=== PATIENT | female | born 2000 | race Caucasian/White ===

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

== ENCOUNTER 2021-02-15 18:50 | Emergency (ER) | payer OTHER ==
[2021-02-15 19:59] VITALS: BP 110/58; PULSE 63; RESP 18; TEMP 97.9
[2021-02-15 20:15] LABS: Appearance,Urine Clear (Clear); Bilirubin,Urine Negative (Negative); Blood,Urine Negative (Negative); Color,Urine Colorless; Glucose,Urine (UA) Negative (Negative); Ketones,Urine Negative (Negative); Leukocyte Esterase,Urine Negative (Negative); Nitrite,Urine Negative (Negative); Protein,Urine Negative (Negative); Specific Gravity,Urine 1.002 (1.001-1.035); Urobilinogen,Urine <2.0 mg/dL (<2.0)
== END 2021-02-15 19:55 | disposition left against medical advice (07) ==
LOC: EC 18:50
DX: Z53.21 Procedure and treatment not carried out due to patient leaving prior to being seen by health care provider (principal)
CPT/HCPCS: 81003; 99499

== ENCOUNTER 2021-08-29 14:21 | Emergency (ER) | payer OTHER ==
[2021-08-29 14:33] VITALS: BP 115/65; PULSE 96; TEMP 98
[2021-08-29] MEDS ORDERED: IBUPROFEN 600 MG TAB PO STA (15:23)
[2021-08-29] MEDS ORDERED: SODIUM CHLORIDE 0.9% 500 ML 500 ML IV STA (15:23)
--- NOTE | 2021-08-29 16:11 | ED ---
URI HPI - General Chief Complaint: Upper Respiratory Infection Stated Complaint: cough Time Seen by Provider: 08/29/21 15:13 Source: patient Mode of arrival: ambulatory Limitations: no limitations - History of Present Illness Initial Comments: She is a 21-year-old female presenting with chief complaint of cough. Cough has been present for about 3 days, it has been nonproductive until early this morning when the patient noticed blood-tinged sputum. Patient is complaining of diffuse chest pain that is not changed by position, exertion, or palpation. She states it is present at baseline and worse with coughing or deep breaths. Patient has been taking guaifenesin and breathing treatments at home. She admits to congestion, sore throat, sinus pressure. She denies abdominal pain, fever, chills, ear pain, diarrhea, constipation, nausea, vomiting, hematochezia, rash, palpitations. - Related Data Previous Rx's Medication Instructions Recorded Benzonatate [Tessalon Perles] 100 mg PO TID PRN #20 capsule 08/29/21 methylPREDNISolone [Medrol Dose 4 mg PO DIRECTED #1 packet 08/29/21 Pack] Allergies Allergy/AdvReac Type Severity Reaction Status Date / Time fluconazole [From Diflucan] Allergy Severe Rash/Hives Verified 08/29/21 16:15 nystatin Allergy Severe Rash/Hives Verified 08/29/21 16:15 sulfamethoxazole Allergy Unknown Family Verified 08/29/21 16:15 [From Bactrim] History trimethoprim [From Bactrim] Allergy Family Verified 08/29/21 16:15 History Review of Systems ROS Statement: Those systems with pertinent positive or pertinent negative responses have been documented in the HPI. ROS Other: All systems not noted in ROS Statement are negative. Past Medical History Additional Past Medical History / Comment(s): Tidwell Parkinson White syndrome, heart murmur, had an ablasion and heart cath at age 11 or 12 yrs. Bicuspid aortic valve leak. Dr Moe at [facility] cardiology. Tourettes syndrome Neurology at the [facility]., wisdom teeth removed History of Any Multi-Drug Resistant Organisms: None Reported Past Surgical History: Adenoidectomy, Cardiac Ablation, Heart Catheterization, Tonsillectomy Additional Past Surgical History / Comment(s): wpw, ganglion cyst wrist removed Past Anesthesia/Blood Transfusion Reactions: No Reported Reaction Past Psychological History: No Psychological Hx Reported Smoking Status: Vaper Past Alcohol Use History: None Reported Past Drug Use History: None Reported - Past Family History Mother Family Medical History: No Reported History Father History Unknown: Yes Half Sister Jolynn Additional Family Medical History / Comment(s): unknown heart problem Ale half sister Family Medical History: No Reported History General Exam Limitations: no limitations General appearance: alert, in no apparent distress Head exam: Present: atraumatic, normocephalic, normal inspection Eye exam: Present: normal appearance, PERRL, EOMI. Absent: scleral icterus, conjunctival injection, periorbital swelling ENT exam: Present: normal exam, mucous membranes moist, TM's normal bilaterally Neck exam: Present: normal inspection Respiratory exam: Present: normal lung sounds bilaterally. Absent: respiratory distress, wheezes, rales, rhonchi, stridor Cardiovascular Exam: Present: regular rate, normal rhythm, normal heart sounds. Absent: systolic murmur, diastolic murmur, rubs, gallop, clicks Neurological exam: Present: alert, oriented X3, CN II-XII intact Psychiatric exam: Present: normal affect, normal mood Skin exam: Present: warm, dry, intact, normal color. Absent: rash Course Vital Signs 08/29/21 08/29/21 14:32 17:36 Temperature 98 F Pulse Rate 96 Respiratory 16 18 Rate Blood Pressure 115/65 O2 Sat by Pulse 97 Oximetry Medical Decision Making - Medical Decision Making Patient is a 21-year-old female presenting with chief complaint of cough. Cough has been present for 3 days. Today she began seeing blood-tinged sputum which prompted her to present to the ER. He has been taking guaifenesin and albuterol breathing treatments. He is also complaining of chest pain that is worse with deep breaths and coughing. On exam lungs are clear to auscultation, HEENT exam is WNL. He should tested negative for Covid, RSV, influenza. Chest x-ray was unremarkable. Lab work is unremarkable. D-dimer is not elevated. EKG is WNL. prescribed patient Tessalon Perles 100 mg up to 3 times a day as needed for c oughing and Medrol Dosepak take as directed. Continue taking guaifenesin and albuterol breathing treatments as needed. He take Motrin and Tylenol as needed for pain control. Provided patient with work note, may return to work on 08/31/21. Gave patient strict return parameters. Follow up with PCP in one to 2 days. Report back to ER with any worsening symptoms or new onset alarming symptoms. Answered all questions. Patient conveyed verbal understanding and agreed to the plan. My attending was Dr. Peterson. - Lab Data Result diagrams: 08/29/21 16:27 08/29/21 16:27 Lab Results 08/29/21 08/29/21 08/29/21 Range/Units 16:12 16:27 16:27 WBC 10.9 (4.0-11.0) k/uL RBC 4.44 (3.80-5.40) m/uL Hgb 13.4 (11.4-16.0) gm/dL Hct 39.5 (34.0-46.0) % MCV 89.0 (80.0-100.0) fL MCH 30.1 (25.0-35.0) pg MCHC 33.8 (31.0-37.0) g/dL RDW 12.9 (11.5-15.5) % Plt Count 224 (150-450) k/uL MPV 7.6 Neutrophils % 76 % Lymphocytes % 16 % Monocytes % 5 % Eosinophils % 1 % Basophils % 0 % Neutrophils # 8.3 H (1.3-7.7) k/uL Lymphocytes # 1.7 (1.0-4.8) k/uL Monocytes # 0.5 (0-1.0) k/uL Eosinophils # 0.1 (0-0.7) k/uL Basophils # 0.0 (0-0.2) k/uL D-Dimer <0.17 (<0.60) mg/L FEU Sodium (137-145) mmol/L Potassium (3.5-5.1) mmol/L Chloride (98-107) mmol/L Carbon Dioxide (22-30) mmol/L Anion Gap mmol/L BUN (7-17) mg/dL Creatinine (0.52-1.04) mg/dL Est GFR (CKD-EPI)AfAm (>60 ml/min/1.73 sqM) Est GFR (CKD-EPI)NonAf (>60 ml/min/1.73 sqM) Glucose (74-99) mg/dL Calcium (8.4-10.2) mg/dL Influenza Type A (PCR) Not Detected (Not Detectd) Influenza Type B (PCR) Not Detected (Not Detectd) RSV (PCR) Not Detected (Not Detectd) SARS-CoV-2 (PCR) Not Detected (Not Detectd) 08/29/21 Range/Units 16:27 WBC (4.0-11.0) k/uL RBC (3.80-5.40) m/uL Hgb (11.4-16.0) gm/dL Hct (34.0-46.0) % MCV (80.0-100.0) fL MCH (25.0-35.0) pg MCHC (31.0-37.0) g/dL RDW (11.5-15.5) % Plt Count (150-450) k/uL MPV Neutrophils % % Lymphocytes % % Monocytes % % Eosinophils % % Basophils % % Neutrophils # (1.3-7.7) k/uL Lymphocytes # (1.0-4.8) k/uL Monocytes # (0-1.0) k/uL Eosinophils # (0-0.7) k/uL Basophils # (0-0.2) k/uL D-Dimer (<0.60) mg/L FEU Sodium 139 (137-145) mmol/L Potassium 3.6 (3.5-5.1) mmol/L Chloride 107 (98-107) mmol/L Carbon Dioxide 21 L (22-30) mmol/L Anion Gap 11 mmol/L BUN 9 (7-17) mg/dL Creatinine 0.68 (0.52-1.04) mg/dL Est GFR (CKD-EPI)AfAm >90 (>60 ml/min/1.73 sqM) Est GFR (CKD-EPI)NonAf >90 (>60 ml/min/1.73 sqM) Glucose 89 (74-99) mg/dL Calcium 9.0 (8.4-10.2) mg/dL Influenza Type A (PCR) (Not Detectd) Influenza Type B (PCR) (Not Detectd) RSV (PCR) (Not Detectd) SARS-CoV-2 (PCR) (Not Detectd) When compared to previous EKG there are: no significant change Interpretation: no acute changes, normal EKG - Radiology Data Radiology results: report reviewed Interpreted by me: Chest x-ray: No acute process Disposition Clinical Impression: Acute upper respiratory infection Disposition: HOME SELF-CARE Condition: Good Instructions (If sedation given, give patient instructions): Upper Respiratory Infection (ED) Additional Instructions: Take medication as prescribed. May take Motrin and Tylenol as needed for pain control. Follow up with PCP in one to 2 days. Report back to ER if experiencing any worsening symptoms or new onset alarming symptoms, including but not limited to chest pain, shortness of breath, fever, chills, coughing up blood or foul smelling sputum. Prescriptions: methylPREDNISolone [Medrol Dose Pack] 4 mg PO DIRECTED #1 packet Benzonatate [Tessalon Perles] 100 mg PO TID PRN #20 capsule PRN Reason: Cough Is patient prescribed a controlled substance at d/c from ED?: No Referrals: None,Stated [Primary Care Provider] - 1-2 days Time of Disposition: 17:44
--- NOTE | 2021-08-29 16:30 | XR ---
EXAMINATION TYPE: XR chest 2V DATE OF EXAM: 08/29/2021 COMPARISON: Chest x-ray August 26, 2016 HISTORY: Chest pain and cough. TECHNIQUE: Frontal and lateral views of the chest are obtained. FINDINGS: There is no focal air space opacity, pleural effusion, or pneumothorax seen. The cardiac silhouette size is within normal limits. The osseous structures are intact. Overlying metallic nipp le ornaments are incidentally noted. IMPRESSION: No acute process.
[2021-08-29 16:43] LABS: Basophils % (A) 0 %; Eosinophils # (A) 0.1 k/uL (0-0.7); Eosinophils % (A) 1 %; HCT 39.5 % (34.0-46.0); HGB 13.4 gm/dL (11.4-16.0); Lymphocytes # (A) 1.7 k/uL (1.0-4.8); Lymphocytes % (A) 16 %; MCH 30.1 pg (25.0-35.0); MCHC 33.8 g/dL (31.0-37.0); Mean Platelet Volume 7.6; Monocytes # (A) 0.5 k/uL (0-1.0); Monocytes % (A) 5 %; Neutrophils # (A) 8.3 k/uL (1.3-7.7); Neutrophils % (A) 76 %; Platelet Count 224 k/uL (150-450); RBC 4.44 m/uL (3.80-5.40); RDW 12.9 % (11.5-15.5); WBC 10.9 k/uL (4.0-11.0)
[2021-08-29 16:44] LABS: African American GFR (CKD) >90 (>60 ml/min/1.73 sqM); Anion Gap 11 mmol/L; Blood Urea Nitrogen 9 mg/dL (7-17); Carbon Dioxide 21 mmol/L (22-30); Chloride 107 mmol/L (98-107); Glucose 89 mg/dL (74-99); Non-African American GFR(CKD) >90 (>60 ml/min/1.73 sqM); Potassium 3.6 mmol/L (3.5-5.1); Sodium 139 mmol/L (137-145)
[2021-08-29 16:58] LABS: Influenza A Not Detected (Not Detectd); Influenza B Not Detected (Not Detectd)
[2021-08-29 17:39] VITALS: RESP 18
== END 2021-08-29 18:11 | disposition home or self-care (01) ==
LOC: EC 14:21
DX: J06.9 Acute upper respiratory infection, unspecified (principal); F17.290 Nicotine dependence, other tobacco product, uncomplicated; Z20.822 Contact with and (suspected) exposure to COVID-19; Z88.1 Allergy status to other antibiotic agents; Z88.2 Allergy status to sulfonamides
CPT/HCPCS: 36415; 71046; 80048; 85025; 85379; 87636; 93005; 96360; 99285

== ENCOUNTER 2022-03-03 19:05 | Emergency (ER) | payer OTHER ==
[2022-03-03 19:41] VITALS: RESP 20
--- NOTE | 2022-03-03 20:11 | XR ---
EXAMINATION TYPE: XR hand complete RT DATE OF EXAM: 03/03/2022 COMPARISON: NONE HISTORY: Pain TECHNIQUE: 3 views FINDINGS: Metacarpals are intact. I see no fracture nor dislocation. Joint spaces are normal. There a re no erosions. There is no subluxation. IMPRESSION: Negative right hand exam. No fracture.
--- NOTE | 2022-03-03 21:00 | ED ---
General Adult HPI - General Chief complaint: Extremity Injury, Upper Stated complaint: rt hand injury Time Seen by Provider: 03/03/22 20:45 Source: patient Mode of arrival: ambulatory Limitations: no limitations - History of Present Illness Initial comments: 21-year-old female presents to the emergency department for right fourth digit pain. States that she tripped over her dog and fell on outstretched hand. Hit her left eye on a picnic table and landed with her right hand on the ground. She has had pain and swelling to the fourth digit. She is right-hand dominant. Denies any headaches or visual changes. No neck pain. She has been taking Tylenol for pain control. Attempted to be seen yesterday in the emergency room and however due to weight the patient left. Presents today for imaging of her hand. Denies any wrist, elbow or shoulder pain. Patient did not lose consciousness with the injury. No other alleviating, precipitating or modifying factors - Related Data Previous Rx's Medication Instructions Recorded Benzonatate [Tessalon Perles] 100 mg PO TID PRN #20 capsule 08/29/21 methylPREDNISolone [Medrol Dose 4 mg PO DIRECTED #1 packet 08/29/21 Pack] Naproxen [Naprosyn] 500 mg PO BID PRN #30 tab 03/11/22 Allergies Allergy/AdvReac Type Severity Reaction Status Date / Time fluconazole [From Diflucan] Allergy Severe Rash/Hives Verified 03/10/22 22:24 nystatin Allergy Severe Rash/Hives Verified 03/10/22 22:24 sulfamethoxazole Allergy Unknown Family Verified 03/10/22 22:24 [From Bactrim] History trimethoprim [From Bactrim] Allergy Family Verified 03/10/22 22:24 History Review of Systems ROS Statement: Those systems with pertinent positive or pertinent negative responses have been documented in the HPI. ROS Other: All systems not noted in ROS Statement are negative. Past Medical History Additional Past Medical History / Comment(s): Tidwell Parkinson White syndrome, heart murmur, had an ablasion and heart cath at age 11 or 12 yrs. Bicuspid aortic valve leak. Dr Moe at [facility] cardiology. Tourettes syndrome Neurology at the [facility] wisdom teeth removed History of Any Multi-Drug Resistant Organisms: None Reported Past Surgical History: Adenoidectomy, Cardiac Ablation, Heart Catheterization, Tonsillectomy Additional Past Surgical History / Comment(s): wpw, ganglion cyst wrist removed Past Anesthesia/Blood Transfusion Reactions: No Reported Reaction Past Psychological History: No Psychological Hx Reported Smoking Status: Vaper Past Alcohol Use History: None Reported Past Drug Use History: None Reported - Past Family History Mother Family Medical History: No Reported History Father History Unknown: Yes Half Sister Jolynn Additional Family Medical History / Comment(s): unknown heart problem Ale half sister Family Medical History: No Reported History General Exam Limitations: no limitations Extremities exam: Present: other (Tenderness to the right fourth digit. Mild circumferential swelling and ecchymosis. No wrist pain. 2+ DP and PT pulses) Neurological exam: Present: alert, oriented X3, CN II-XII intact Psychiatric exam: Present: normal affect Skin exam: Present: warm, dry Course Vital Signs 03/03/22 03/03/22 19:38 21:10 Temperature 98.2 F 97.6 F Pulse Rate 100 72 Respiratory 20 20 Rate Blood Pressure 117/70 116/70 O2 Sat by Pulse 100 97 Oximetry Medical Decision Making - Medical Decision Making On arrival patient was placed into fast track. Thorough history and physical exam was performed. X-ray is performed which demonstrates no acute fractures. Patient is placed in a splint. Patient will be discharged home. Instructed to rest, ice and elevate the extremity. Follow with her primary care doctor in 7- 10 days if she has persistent symptoms she may need repeat imaging. Patient was agreeable and discharged home in stable condition Disposition Clinical Impression: Fall, Finger sprain Disposition: HOME SELF-CARE Condition: Stable Instructions (If sedation given, give patient instructions): Finger Sprain (ED) Additional Instructions: Please take Tylenol for pain. Wear the splint. Follow up with her doctor and have repeat imaging if your pain persists Is patient prescribed a controlled substance at d/c from ED?: No Referrals: None,Stated [Primary Care Provider] - 1-2 days Time of Disposition: 21:00
[2022-03-03 21:11] VITALS: BP 116/70; PULSE 72; TEMP 97.6
== END 2022-03-03 21:10 | disposition home or self-care (01) ==
LOC: EC 19:05
DX: S63.619A Unspecified sprain of unspecified finger, initial encounter (principal); F17.290 Nicotine dependence, other tobacco product, uncomplicated; Z88.8 Allergy status to other drugs, medicaments and biological substances; Z88.6 Allergy status to analgesic agent; Z88.2 Allergy status to sulfonamides; W01.0XXA Fall on same level from slipping, tripping and stumbling without subsequent striking against object, initial encounter
CPT/HCPCS: 99283

== ENCOUNTER 2022-03-10 22:19 | Emergency (ER) | payer OTHER ==
[2022-03-10 22:24] VITALS: TEMP 98.3
--- NOTE | 2022-03-10 22:48 | ED ---
Chest Pain HPI - General Chief Complaint: Chest Pain Stated Complaint: Chest pain Time Seen by Provider: 03/10/22 22:25 Source: patient Mode of arrival: ambulatory Limitations: no limitations - History of Present Illness Initial Comments: 21-year-old female with past medical history of mazariegos Parkinson White syndrome who presents to the emergency room for chest pain. States his been present for the past 3 days. Was intermittent however has now become constant. Located substernally with radiation to her right flank. Denies any provocative factors. She's been taking Tylenol which has not helped her pain. No fevers, chills or cough. No nausea or vomiting. No concern for . Denies any fevers. Follows with her welding machine operator thermit once every 2 years. She had a cardiac catheterization with ablation when she was 11. Patient also has a bicuspid aortic valve. Denies any calf pain or swelling. No history of DVTs or PEs. No other alleviating, precipitating or modifying factors - Related Data Previous Rx's Medication Instructions Recorded Benzonatate [Tessalon Perles] 100 mg PO TID PRN #20 capsule 08/29/21 methylPREDNISolone [Medrol Dose 4 mg PO DIRECTED #1 packet 08/29/21 Pack] Naproxen [Naprosyn] 500 mg PO BID PRN #30 tab 03/11/22 Allergies Allergy/AdvReac Type Severity Reaction Status Date / Time fluconazole [From Diflucan] Allergy Severe Rash/Hives Verified 03/10/22 22:24 nystatin Allergy Severe Rash/Hives Verified 03/10/22 22:24 sulfamethoxazole Allergy Unknown Family Verified 03/10/22 22:24 [From Bactrim] History trimethoprim [From Bactrim] Allergy Family Verified 03/10/22 22:24 History Review of Systems ROS Statement: Those systems with pertinent positive or pertinent negative responses have been documented in the HPI. ROS Other: All systems not noted in ROS Statement are negative. EKG Findings - EKG Comments: EKG Findings:: E demonstrates sinus rhythm with rate of 75. MN interval 132. QRS 69. QTC of 394. No acute ST segment elevations or depressions concerning for ischemic changes. No signs of WPW Past Medical History Additional Past Medical History / Comment(s): Mazariegos Parkinson White syndrome, heart murmur, had an ablasion and heart cath at age 11 or 12 yrs. Bicuspid aortic valve leak. Dr Moe at [facility] cardiology. Tourettes syndrome Neurology at the [facility] Tourettes., wisdom teeth removed History of Any Multi-Drug Resistant Organisms: None Reported Past Surgical History: Adenoidectomy, Cardiac Ablation, Heart Catheterization, Tonsillectomy Additional Past Surgical History / Comment(s): wpw, ganglion cyst wrist removed Past Anesthesia/Blood Transfusion Reactions: No Reported Reaction Past Psychological History: No Psychological Hx Reported Smoking Status: Current every day smoker, Vaper Past Alcohol Use History: Occasional Past Drug Use History: Marijuana - Past Family History Mother Family Medical History: No Reported History Father History Unknown: Yes Half Sister Jolynn Additional Family Medical History / Comment(s): unknown heart problem Ale half sister Family Medical History: No Reported History General Exam Limitations: no limitations General appearance: alert, in no apparent distress Head exam: Present: atraumatic, normocephalic, normal inspection Eye exam: Present: normal appearance, PERRL, EOMI. Absent: scleral icterus, conjunctival injection, periorbital swelling ENT exam: Present: normal exam, mucous membranes moist Neck exam: Present: normal inspection. Absent: tenderness, meningismus, lymphadenopathy Respiratory exam: Present: normal lung sounds bilaterally. Absent: respiratory distress, wheezes, rales, rhonchi, stridor Cardiovascular Exam: Present: regular rate, normal rhythm, normal heart sounds. Absent: systolic murmur, diastolic murmur, rubs, gallop, clicks GI/Abdominal exam: Present: soft, normal bowel sounds. Absent: distended, tenderness, guarding, rebound, rigid Extremities exam: Present: normal inspection, full ROM, normal capillary refill. Absent: tenderness, pedal edema, joint swelling, calf tenderness Back exam: Present: normal inspection Neurological exam: Present: alert, oriented X3, CN II-XII intact Psychiatric exam: Present: normal affect, normal mood Skin exam: Present: warm, dry, intact, normal color. Absent: rash Course Vital Signs 03/10/22 03/10/22 03/11/22 22:21 23:56 03:15 Temperature 98.3 F Pulse Rate 77 79 79 Respiratory 18 18 16 Rate Blood Pressure 117/79 116/74 114/79 O2 Sat by Pulse 99 96 98 Oximetry - Reevaluation(s) Reevaluation #1: No labs reported yet - lab states they are very behind 03/11/22 00:37 Chest Pain MDM - MDM Upon arrival patient was placed into room 3. A thorough history and physical exam was performed. IV access is established laboratory studies are conducted. Patient does go for a chest x-ray. She was given a dose of Toradol for pain control. Discuss results with the patient. Charged home on Naprosyn. Instructed to call her welding machine operator thermit to make an appointment. Naprosyn as directed. Return for any new or worsening symptoms. Patient understood and was agreeable. Discharged home in stable condition Disposition Clinical Impression: Chest pain Disposition: HOME SELF-CARE Condition: Stable Instructions (If sedation given, give patient instructions): Chest Pain (ED) Additional Instructions: Please call your welding machine operator thermit and make an appointment. You should have an echo performed. Take the pain medications as directed to return for any new or w orsening symptoms Prescriptions: Naproxen [Naprosyn] 500 mg PO BID PRN #30 tab PRN Reason: Pain Is patient prescribed a controlled substance at d/c from ED?: No Referrals: None,Stated [Primary Care Provider] - 1-2 days Time of Disposition: 01:43
--- NOTE | 2022-03-10 23:44 | XR ---
EXAMINATION TYPE: XR chest 2V DATE OF EXAM: 03/10/2022 COMPARISON: 08/29/2021 HISTORY: Chest pain TECHNIQUE: FINDINGS: Heart and mediastinum are normal. Lungs are clear. Diaphragm is normal. Bony thorax is inta ct. IMPRESSION: Normal chest. No change.
[2022-03-11 00:51] LABS: Basophils # (A) 0.2 k/uL (0-0.2); Basophils % (A) 2 %; Eosinophils # (A) 0.1 k/uL (0-0.7); Eosinophils % (A) 1 %; HCT 42.6 % (34.0-46.0); HGB 14.1 gm/dL (11.4-16.0); Lymphocytes # (A) 2.3 k/uL (1.0-4.8); Lymphocytes % (A) 24 %; MCH 29.8 pg (25.0-35.0); MCHC 33.1 g/dL (31.0-37.0); MCV 89.9 fL (80.0-100.0); Mean Platelet Volume 7.2; Monocytes # (A) 0.5 k/uL (0-1.0); Monocytes % (A) 5 %; Neutrophils # (A) 6.4 k/uL (1.3-7.7); Neutrophils % (A) 67 %; Platelet Count 275 k/uL (150-450); RBC 4.74 m/uL (3.80-5.40); RDW 12.3 % (11.5-15.5); WBC 9.6 k/uL (4.0-11.0)
[2022-03-11 00:52] LABS: ALT 19 U/L (4-34); AST 48 U/L (14-36); African American GFR (CKD) >90 (>60 ml/min/1.73 sqM); Albumin 4.8 g/dL (3.5-5.0); Alkaline Phosphatase 80 U/L (38-126); Anion Gap 17 mmol/L; Blood Urea Nitrogen 10 mg/dL (7-17); Calcium 9.6 mg/dL (8.4-10.2); Carbon Dioxide 18 mmol/L (22-30); Chloride 104 mmol/L (98-107); Glucose 77 mg/dL (74-99); Magnesium 2.1 mg/dL (1.6-2.3); Non-African American GFR(CKD) >90 (>60 ml/min/1.73 sqM); Sodium 139 mmol/L (137-145); Total Bilirubin 1.4 mg/dL (0.2-1.3)
[2022-03-11 01:08] VITALS: PULSE 79
[2022-03-11 01:11] LABS: Partial Thromboplastin Time 24.9 sec (22.0-30.0); Prothrombin Time 10.7 sec (9.0-12.0)
[2022-03-11 01:21] LABS: Appearance,Urine Clear (Clear); Bilirubin,Urine Negative (Negative); Blood,Urine Negative (Negative); Color,Urine Colorless; Glucose,Urine (UA) Negative (Negative); Ketones,Urine Negative (Negative); Leukocyte Esterase,Urine Negative (Negative); Nitrite,Urine Negative (Negative); PH, Urine 7.5 (5.0-8.0); Protein,Urine Negative (Negative); Specific Gravity,Urine 1.001 (1.001-1.035); Urobilinogen,Urine <2.0 mg/dL (<2.0)
[2022-03-11] MEDS ORDERED: KETOROLAC 15 MG/ML 1 ML VIAL IVP STA (01:41)
[2022-03-11 03:19] VITALS: BP 114/79; RESP 16
== END 2022-03-11 02:45 | disposition home or self-care (01) ==
LOC: EC 22:19
DX: R07.89 Other chest pain (principal); F17.200 Nicotine dependence, unspecified, uncomplicated; Z88.8 Allergy status to other drugs, medicaments and biological substances; Z88.3 Allergy status to other anti-infective agents; Z88.2 Allergy status to sulfonamides
CPT/HCPCS: 36415; 93005; 85379; 83880; 80053; 83735; 84484; 85025; 85610; 85730; 81003; 81025; 71046; 99285; 96374; J1885

== ENCOUNTER 2022-09-28 16:37 | Emergency (ER) | payer OTHER ==
[2022-09-28 16:46] VITALS: RESP 16
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
[2022-09-28] MEDS ORDERED: LIDOCAINE 1%-EPI 1:100,000 20 ML VIAL SQ STA (18:52)
[2022-09-28 19:30] VITALS: BP 126/79; PULSE 84; TEMP 98.1
== END 2022-09-28 19:32 | disposition home or self-care (01) ==
LOC: EC 16:37
DX: S71.112A Laceration without foreign body, left thigh, initial encounter (principal); F17.290 Nicotine dependence, other tobacco product, uncomplicated; Z88.2 Allergy status to sulfonamides; Z88.1 Allergy status to other antibiotic agents; Z88.3 Allergy status to other anti-infective agents; V49.50XA Passenger injured in collision with unspecified motor vehicles in traffic accident, initial encounter
CPT/HCPCS: 12002; 99284

== ENCOUNTER 2022-10-03 19:49 | Emergency (ER) | payer OTHER ==
[2022-10-03 20:06] VITALS: BP 116/70; PULSE 76; RESP 20; TEMP 98.5
[2022-10-03] MEDS ORDERED: CEPHALEXIN 500 MG CAP PO STA (20:14)
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
[2022-10-03] MEDS ORDERED: IBUPROFEN 600 MG TAB PO STA (20:19)
== END 2022-10-03 21:25 | disposition home or self-care (01) ==
LOC: EC 19:49
DX: S71.112A Laceration without foreign body, left thigh, initial encounter (principal); F17.290 Nicotine dependence, other tobacco product, uncomplicated; Z88.1 Allergy status to other antibiotic agents; Z88.2 Allergy status to sulfonamides; V89.2XXA Person injured in unspecified motor-vehicle accident, traffic, initial encounter
CPT/HCPCS: 12001; 99283

== ENCOUNTER 2022-12-12 21:01 | Emergency (ER) | payer OTHER ==
[2022-12-12 21:05] VITALS: BP 124/85; PULSE 99; RESP 18; TEMP 98.8
--- NOTE | 2022-12-12 22:04 | ED ---
General Adult HPI - General Chief complaint: Skin/Abscess/Foreign Body Stated complaint: Complication from control inplant Time Seen by Provider: 12/12/22 21:08 Source: patient Mode of arrival: ambulatory Limitations: no limitations - History of Present Illness Initial comments: 22-year-old female presents to the emergency department chief complaint of bleeding from site of nexplanon removal and implantation. She states that she had her nexplanon removed and replaced earlier today and states that she is having bleeding from the site since then. She is went through multiple Band- Aids but is allergic to adhesive and states that she can't leave the Band-Aid on for a long period of time because she will develop a rash. She states she takes no daily medications. - Related Data Previous Rx's Medication Instructions Recorded Benzonatate [Tessalon Perles] 100 mg PO TID PRN #20 capsule 08/29/21 methylPREDNISolone [Medrol Dose 4 mg PO DIRECTED #1 packet 08/29/21 Pack] Naproxen [Naprosyn] 500 mg PO BID PRN #30 tab 03/11/22 Cephalexin [Keflex] 500 mg PO Q6H #28 cap 10/03/22 Ibuprofen [Motrin] 600 mg PO Q6HR PRN #30 tab 10/03/22 Allergies Allergy/AdvReac Type Severity Reaction Status Date / Time fluconazole [From Diflucan] Allergy Severe Rash/Hives Verified 12/12/22 21:05 nystatin Allergy Severe Rash/Hives Verified 12/12/22 21:05 sulfamethoxazole Allergy Unknown Family Verified 12/12/22 21:05 [From Bactrim] History trimethoprim [From Bactrim] Allergy Family Verified 12/12/22 21:05 History Review of Systems ROS Statement: Those systems with pertinent positive or pertinent negative responses have been documented in the HPI. ROS Other: All systems not noted in ROS Statement are negative. Past Medical History Additional Past Medical History / Comment(s): Tidwell Parkinson White syndrome, heart murmur, had an ablasion and heart cath at age 11 or 12 yrs. Bicuspid aortic valve leak. Dr Moe at [facility] cardiology. Tourettes syndrome Neurology at the [facility]., wisdom teeth removed History of Any Multi-Drug Resistant Organisms: None Reported Past Surgical History: Adenoidectomy, Cardiac Ablation, Heart Catheterization, Tonsillectomy Additional Past Surgical History / Comment(s): wpw, ganglion cyst wrist removed Past Anesthesia/Blood Transfusion Reactions: No Reported Reaction Past Psychological History: Anxiety, Depression Smoking Status: Current every day smoker, Vaper Past Alcohol Use History: Occasional Past Drug Use History: None Reported - Past Family History Mother Family Medical History: No Reported History Father History Unknown: Yes Half Sister Jolynn Additional Family Medical History / Comment(s): unknown heart problem Ale half sister Family Medical History: No Reported History General Exam Limitations: no limitations General appearance: alert, in no apparent distress Head exam: Present: atraumatic, normocephalic, normal inspection Eye exam: Present: normal appearance, PERRL, EOMI. Absent: scleral icterus, conjunctival injection, periorbital swelling ENT exam: Present: normal exam, mucous membranes moist Neck exam: Present: normal inspection. Absent: tenderness, meningismus, lymphadenopathy Respiratory exam: Present: normal lung sounds bilaterally. Absent: respiratory distress, wheezes, rales, rhonchi, stridor Cardiovascular Exam: Present: regular rate, normal rhythm, normal heart sounds. Absent: systolic murmur, diastolic murmur, rubs, gallop, clicks Extremities exam: Present: normal inspection, full ROM, normal capillary refill. Absent: tenderness, pedal edema, joint swelling, calf tenderness Back exam: Present: normal inspection Neurological exam: Present: alert, oriented X3 Psychiatric exam: Present: normal affect, normal mood Skin exam: Present: warm, dry, normal color, other Course Vital Signs 12/12/22 21:03 Temperature 98.8 F Pulse Rate 99 Respiratory 18 Rate Blood Pressure 124/85 O2 Sat by Pulse 99 Oximetry Procedures - Laceration Laceration #1 Consent Obtained: verbal consent Indication: other Site: upper extremity Size (cm): 1 Description: linear Depth: simple, single layer Type of Sutures: other (monofilament) Size of Sutures: 6-0 Technique: simple, interrupted Patient Tolerated Procedure: well, no complications Medical Decision Making - Medical Decision Making Was pt. sent in by a medical professional or institution (, PA, SUBSTANCE ABUSE PREVENTION COORDINATOR, urgent care, hospital, or fci...) When possible be specific @ -No Did you speak to anyone other than the patient for history (EMS, parent, family, police, friend...)? What history was obtained from this source @ -No Did you review nursing and triage notes (agree or disagree)? Why? @ -I reviewed and agree with nursing and triage notes Were old charts reviewed (outside hosp., previous admission, EMS record, old EKG, old radiological studies, urgent care reports/EKG's, fci records)? Report findings @ -No old charts were reviewed Differential Diagnosis (chest pain, altered mental status, abdominal pain women, abdominal pain men, vaginal bleeding, weakness, fever, dyspnea, syncope, headache, dizziness, GI bleed, back pain, seizure, CVA, palpatations, mental health, musculoskeletal)? @ -not applicable EKG interpreted by me (3pts min.). @ -None X-rays interpreted by me (1pt min.). @ -None done CT interpreted by me (1pt min.). @ -None done U/S interpreted by me (1pt. min.). @ -None done What testing was considered but not performed or refused? (CT, X-rays, U/S, labs)? Why? @ -None What meds were considered but not given or refused? Why? @ -None Did you discuss the management of the patient with other professionals (professionals i.e. , PA, SUBSTANCE ABUSE PREVENTION COORDINATOR, lab, RT, psych nurse, addiction social worker, lap checker, teacher, customs and immigration officer, case operator)? Give summary @ -No Was smoking cessation discussed for >3mins.? @ -No Was critical care preformed (if so, how long)? @ -No Were there social determinants of health that impacted care today? How? (Homelessness, low income, unemployed, alcoholism, drug addiction, transportation, low edu. Level, literacy, decrease access to med. care, fci, rehab)? @ -No Was there de-escalation of care discussed even if they declined (Discuss DNR or withdrawal of care, Hospice)? DNR status @ -No What co-morbidities impacted this encounter? (DM, HTN, Smoking, COPD, CAD, Cancer, CVA, ARF, Chemo, Hep., AIDS, mental health diagnosis, sleep apnea, morbid obesity)? @ -None Was patient admitted / discharged? Hospital course, mention meds given and route, prescriptions, significant lab abnormalities, going to OR and other pertinent info. @ -discharged. Patient presented emergency department chief complaint of bleeding from site of nexplanon removal and replacement. Patient is allergic to adhesive and Steri-Strips. Considered applying Steri-Strip to the area but patient states that she has had skin irritation and rash from them in the past. One stitch was placed in the wound. Patient advised that the stitch can be removed in about 3 days. Patient advised on wound care. Case discussed with my attending, Dr. Gregory Undiagnosed new problem with uncertain prognosis? @ -No Drug Therapy requiring intensive monitoring for toxicity (Heparin, Nitro, Insulin, Cardizem)? @ -No Were any procedures done? @ -suture Diagnosis/symptom? @ -bleeding from incision site Acute, or Chronic, or Acute on Chronic? @ -acute Uncomplicated (without systemic symptoms) or Complicated (systemic symptoms)? @ -uncomplicated Side effects of treatment? @ -No Exacerbation, Progression, or Severe Exacerbation? @ -No Poses a threat to life or bodily function? How? (Chest pain, [place], [place], pneumonia, PE, COPD, DKA, ARF, appy, cholecystitis, CVA, Diverticulitis, Homicidal, Suicidal, threat to staff... and all critical care pts) @ -No Disposition Clinical Impression: Laceration Disposition: HOME SELF-CARE Condition: Stable Instructions (If sedation given, give patient instructions): Care For Your Stitches (ED) Additional Instructions: Please return to the emergency department for new or worsening symptoms. Is patient prescribed a controlled substance at d/c from ED?: No Referrals: None,Stated [Primary Care Provider] - 1-2 days Time of Disposition: 22:03
== END 2022-12-12 22:12 | disposition home or self-care (01) ==
LOC: EC 21:01
DX: S61.419A Laceration without foreign body of unspecified hand, initial encounter (principal); F17.290 Nicotine dependence, other tobacco product, uncomplicated; Z86.59 Personal history of other mental and behavioral disorders; Z88.6 Allergy status to analgesic agent; Z88.8 Allergy status to other drugs, medicaments and biological substances; Z88.2 Allergy status to sulfonamides; Z88.3 Allergy status to other anti-infective agents; X58.XXXA Exposure to other specified factors, initial encounter
CPT/HCPCS: 12001; 99282

== ENCOUNTER → 2023-11-25 | Outpatient (CLI) | payer OTHER ==
--- NOTE | 2023-11-26 07:43 | XR ---
EXAMINATION TYPE: XR knee limited RT DATE OF EXAM: 11/25/2023 COMPARISON: NONE HISTORY: Pain TECHNIQUE: Two views are submitted. FINDINGS: Small suprapatellar bursal fluid collection.. Osseous structures are intact. No acute fracture seen . IMPRESSION: 1. No acute fracture or dislocation. Small suprapatellar bursal fluid collection can be associated w ith internal derangement of the knee correlate with MRI as clinically warranted.
== END | disposition home or self-care (01) ==
LOC: RADXRMAIN 16:48
PROVIDERS: ATTEND Nurse Practitioner
DX: S89.91XA Unspecified injury of right lower leg, initial encounter (principal); M25.561 Pain in right knee; X58.XXXA Exposure to other specified factors, initial encounter

== ENCOUNTER → 2024-02-11 | Outpatient (CLI) | payer OTHER ==
--- NOTE | 2024-02-11 22:07 | MR ---
EXAMINATION TYPE: MR knee RT wo con DATE OF EXAM: 02/11/2024 COMPARISON: Right knee x-ray November 25, 2023 HISTORY: Chronic right knee pain, Locking, and swelling TECHNIQUE: Multiplanar, multisequence images of the knee is performed without IV contrast. FINDINGS: MEDIAL MENISCUS: Anterior and posterior horns are intact without tear. LATERAL MENISCUS: Anterior and posterior horns are intact without tear. CRUCIATE LIGAMENTS: The anterior and posterior cruciate ligaments are intact and unremarkable. COLLATERAL LIGAMENTS: The medial collateral ligament and lateral collateral ligament complex are inta ct and unremarkable. EXTENSOR MECHANISM: Visualized quadriceps and patellar tendons are intact. EFFUSION: Small suprapatellar joint effusion. POPLITEAL CYST: No popliteal/hayward cyst. TRICOMPARTMENT SPACES: Tricompartment joint spaces are preserved. No significant spurring is seen. CARTILAGE: Tricompartmental articular cartilage is maintained. BONE MARROW SIGNAL: No focal abnormal marrow signal is appreciated. OTHER: No additional significant abnormality is appreciated. IMPRESSION: No meniscal or ligamentous tear is seen.
== END | disposition home or self-care (01) ==
LOC: RADMRIMAIN 15:40
PROVIDERS: ATTEND Orthopaedic Surgery
DX: M25.561 Pain in right knee

== ENCOUNTER 2024-11-26 14:03 | Emergency (ER) | payer OTHER ==
[2024-11-26 14:30] VITALS: TEMP 98.6
--- NOTE | 2024-11-26 14:36 | ED ---
Lower Extremity Injury HPI - General Chief Complaint: Extremity Injury, Lower Stated Complaint: Left toe injury Time Seen by Provider: 11/26/24 14:30 Source: patient, RN notes reviewed Mode of arrival: ambulatory Limitations: no limitations - History of Present Illness Initial Comments: 24-year-old female presented emergency room with complaints of left great toe pain after she excellently dropped a cake mccabe onto her foot. Patient states that she is able to ambulate however this causes mild pain. She is up-to-date on her tetanus vaccination. Denies other injuries at the time of the event. No other acute complaints this time. - Related Data Previous Rx's Medication Instructions Recorded Benzonatate [Tessalon Perles] 100 mg PO TID PRN #20 capsule 08/29/21 methylPREDNISolone [Medrol Dose 4 mg PO DIRECTED #1 packet 08/29/21 Pack] Naproxen [Naprosyn] 500 mg PO BID PRN #30 tab 03/11/22 Cephalexin [Keflex] 500 mg PO Q6H #28 cap 10/03/22 Ibuprofen [Motrin] 600 mg PO Q6HR PRN #30 tab 10/03/22 Allergies Allergy/AdvReac Type Severity Reaction Status Date / Time fluconazole [From Diflucan] Allergy Severe Rash/Hives Verified 11/26/24 14:30 nystatin Allergy Severe Rash/Hives Verified 11/26/24 14:30 sulfamethoxazole Allergy Unknown Family Verified 11/26/24 14:30 [From Bactrim] History trimethoprim [From Bactrim] Allergy Family Verified 11/26/24 14:30 History Review of Systems ROS Statement: Those systems with pertinent positive or pertinent negative responses have been documented in the HPI. ROS Other: All systems not noted in ROS Statement are negative. Past Medical History Additional Past Medical History / Comment(s): Tidwell Parkinson White syndrome, heart murmur, had an ablasion and heart cath at age 11 or 12 yrs. Bicuspid aortic valve leak. Dr Moe at [facility] cardiology. Tourettes syndrome Neurology at the [facility] wisdom teeth removed History of Any Multi-Drug Resistant Organisms: None Reported Past Surgical History: Adenoidectomy, Cardiac Ablation, Heart Catheterization, Tonsillectomy Additional Past Surgical History / Comment(s): wpw, ganglion cyst wrist removed Past Anesthesia/Blood Transfusion Reactions: No Reported Reaction Past Psychological History: Anxiety, Depression Smoking Status: Current every day smoker, Vaper Past Alcohol Use History: Occasional Past Drug Use History: None Reported - Past Family History Mother Family Medical History: No Reported History Father History Unknown: Yes Half Sister Jolynn Additional Family Medical History / Comment(s): unknown heart problem Ale half sister Family Medical History: No Reported History General Exam Limitations: no limitations General appearance: alert, in no apparent distress ENT exam: Present: normal exam, mucous membranes moist Neck exam: Present: normal inspection. Absent: tenderness, meningismus, lymphadenopathy Respiratory exam: Present: normal lung sounds bilaterally. Absent: respiratory distress, wheezes, rales, rhonchi, stridor Cardiovascular Exam: Present: regular rate, normal rhythm, normal heart sounds. Absent: systolic murmur, diastolic murmur, rubs, gallop, clicks GI/Abdominal exam: Present: soft, normal bowel sounds. Absent: distended, tenderness, guarding, rebound, rigid Left Foot/Toe exam: Present: tenderness, laceration (distal 1st digit .25 cm laceration, bleeding controlled) Neurovascular tendon exam: Present: no vascular compromise Back exam: Present: normal inspection Skin exam: Present: warm, dry, intact, normal color. Absent: rash Course Vital Signs 11/26/24 11/26/24 14:27 16:08 Temperature 98.6 F Pulse Rate 50 L 60 Respiratory 20 17 Rate Blood Pressure 124/68 113/75 O2 Sat by Pulse 99 99 Oximetry Medical Decision Making - Medical Decision Making Was pt. sent in by a medical professional or institution (, PA, BOTANICAL TECHNICAL OFFICER, urgent care, hospital, or [facility]...) When possible be specific @ -No Did you speak to anyone other than the patient for history (EMS, parent, family, police, friend...)? What history was obtained from this source @ -No Did you review nursing and triage notes (agree or disagree)? Why? @ -I reviewed and agree with nursing and triage notes Were old charts reviewed (outside hosp., previous admission, EMS record, old EKG, old radiological studies, urgent care reports/EKG's, [facility] records)? Report findings @ -No old charts were reviewed Differential Diagnosis (chest pain, altered mental status, abdominal pain women, abdominal pain men, vaginal bleeding, weakness, fever, dyspnea, syncope, headache, dizziness, GI bleed, back pain, seizure, CVA, palpatations, mental health, musculoskeletal)? @ -Differential Musculoskeletal Muscular strain, contusion, ligament sprain, fracture, arthritis, septic arthritis, bursitis, cellulitis, muscle spasm, nerve compression, DVT, arterial occlusion, herpes zoster, electrolyte abnormality, tumor.... This is not meant to be in all inclusive list EKG interpreted by me (3pts min.). @ -None X-rays interpreted by me (1pt min.). @ -X-ray of the left foot reveals no acute osseous abnormality of the great toe CT interpreted by me (1pt min.). @ -None done U/S interpreted by me (1pt. min.). @ -None done What testing was considered but not performed or refused? (CT, X-rays, U/S, labs)? Why? @ -None What meds were considered but not given or refused? Why? @ -None Did you discuss the management of the patient with other professionals (professionals i.e. , PA, BOTANICAL TECHNICAL OFFICER, lab, RT, psych nurse, social services, copper plater, teacher, air control/anti air warfare officer, casework manager)? Give summary @ -No Was smoking cessation discussed for >3mins.? @ -No Was critical care preformed (if so, how long)? @ -No Were there social determinants of health that impacted care today? How? (Homelessness, low income, unemployed, alcoholism, drug addiction, transportation, low edu. Level, literacy, decrease access to med. care, snf, rehab)? @ -No Was there de-escalation of care discussed even if they declined (Discuss DNR or withdrawal of care, Hospice)? DNR status @ -No What co-morbidities impacted this encounter? (DM, HTN, Smoking, COPD, CAD, Cancer, CVA, ARF, Chemo, Hep., AIDS, mental health diagnosis, sleep apnea, morbid obesity)? @ -None Was patient admitted / discharged? Hospital course, mention meds given and route, prescriptions, significant lab abnormalities, going to OR and other pertinent info. @ -Discharge. 24-year-old female seen emergency room with complaints of left first toe digit pain and laceration. There is a noted 0.25 cm laceration to the distal toe with bleeding is controlled. X-ray no acute osseous abnormality. Patient stable for discharge. Case discussed with Dr. Dugan Undiagnosed new problem with uncertain prognosis? @ -No Drug Therapy requiring intensive monitoring for toxicity (Heparin, Nitro, In sulin, Cardizem)? @ -No Were any procedures done? @ -No Diagnosis/symptom? @ -laceration, ecchymosis of digit of toe Acute, or Chronic, or Acute on Chronic? @ -acute Uncomplicated (without systemic symptoms) or Complicated (systemic symptoms)? @ -uncomplicated Side effects of treatment? @ -No Exacerbation, Progression, or Severe Exacerbation? @ -No Poses a threat to life or bodily function? How? (Chest pain, [place], [place], pneumonia, PE, COPD, DKA, ARF, appy, cholecystitis, CVA, Diverticulitis, Homicidal, Suicidal, threat to staff... and all critical care pts) @ -No Disposition Clinical Impression: Laceration, Toe sprain Disposition: HOME SELF-CARE Condition: Stable Instructions (If sedation given, give patient instructions): Laceration (DC) Additional Instructions: Please return to the Emergency Department if symptoms worsen or any other concerns. Is patient prescribed a controlled substance at d/c from ED?: No Referrals: None,Stated [Primary Care Provider] - 1-2 days
--- NOTE | 2024-11-26 14:52 | XR ---
EXAMINATION TYPE: XR foot complete LT DATE OF EXAM: 11/26/2024 2:39 PM COMPARISON: None. CLINICAL INDICATION: Female, 24 years old with history of Injury, pain TECHNIQUE: 3 view(s) obtained. FINDINGS: No acute fracture or dislocation evident. Soft tissues appear normal. Joint spaces are preserved. Gre at toe appears intact. Follow up exams can be performed 7-10 days from acute trauma for continued pain. IMPRESSION: 1. No acute osseous abnormality great toe [facility] Tommei Humphrey, , 11/26/2024 2:50 PM
[2024-11-26 16:09] VITALS: BP 113/75; PULSE 60; RESP 17
== END 2024-11-26 16:09 | disposition home or self-care (01) ==
LOC: EC 14:03
DX: S91.112A Laceration without foreign body of left great toe without damage to nail, initial encounter (principal); F17.290 Nicotine dependence, other tobacco product, uncomplicated; Z88.1 Allergy status to other antibiotic agents; Z88.2 Allergy status to sulfonamides; Z88.3 Allergy status to other anti-infective agents; Z88.8 Allergy status to other drugs, medicaments and biological substances; W20.8XXA Other cause of strike by thrown, projected or falling object, initial encounter
CPT/HCPCS: 99283